=== PATIENT | female | born 1965 | race Caucasian/White ===

== ENCOUNTER → 2018-01-21 | Day surgery (SDC) | payer OTHER ==
[2018-01-20 13:06] LABS: BASOPHILS # (AUTO) 0.1 (0.0-0.1); BASOPHILS % 0.5 % (0.0-1.0); EOSINOPHILS # (AUTO) 0.1 (0.0-0.4); HEMATOCRIT 45.4 % (34.2-44.1); HEMOGLOBIN 15.4 g/dL (12.0-16.0); LYMPHOCYTES # (AUTO) 1.4 (1.0-3.2); LYMPHOCYTES % 14.1 % (18.0-39.1); MEAN CORPUSCULAR HEMOGLOBIN 32.4 pg (28-32); MEAN CORPUSCULAR HGB CONC 33.9 g/dL (31-35); MEAN CORPUSCULAR VOLUME 95.6 fL (81-99); MONOCYTES # (AUTO) 0.6 (0.2-0.8); MONOCYTES % 5.7 % (4.4-11.3); NEUTROPHILS % 78.4 % (38.7-80.0); PLATELET COUNT 208 x10e3/uL (140-360); RED BLOOD COUNT 4.75 x10e6/uL (3.6-5.1); RED CELL DISTRIBUTION WIDTH 12.6 % (11.7-14.4)
--- NOTE | 2018-01-20 13:50 | Diagnostic Imaging Report ---
PROCEDURE: Frontal and lateral views of the chest. COMPARISON: None INDICATIONS: PRE-OP. History of fibroids. FINDINGS: Lines/tubes: None. Lungs: The lungs are well inflated and clear. There is no evidence of pneumonia or pulmonary edema. Pleura: There is no pleural effusion or pneumothorax. Heart and mediastinum: The heart and the mediastinum are normal. Calcified hilar and mediastinal lymph nodes. Atherosclerotic calcifications in the aortic arch. Bones: No acute bony abnormality. IMPRESSION: No acute cardiopulmonary disease. Dictated by: Gera Felix M.D. on 01/20/2018 at 13:52 Electronically approved by: Gera Felix M.D. on 01/20/2018 at 13:52
[~2018-01-21] MED LIST: ACETAMINOPHEN 1000 MG/100 ML 100 ML IV ONE; ACETAMINOPHEN 1000 MG/100 ML IV ONE; AMLODIPINE BESY10 MG PO; CLONAZEPAM1 MG PO; DEXAMETHASONE SOD PHOS INJ 4 MG/ML VIAL ONE; FENTANYL CITRATE/PF 100MCG/2 ML INJ ONE; LIDOCAINE HCL 2% LOCAL INJ 5 ML SDV VIAL INJ ONE; MIDAZOLAM HCL 2 MG/2 ML VIAL ONE; MORPHINE SULFATE 2 MG/ML SYR ONE; OMEPRAZOLE20 MG PO; PROPOFOL IV EMULSION 10 MG/ML 20 ML VIAL ONE; SEVOFLURANE INHAL SOLN 250 ML PEN BTL ONE; SILVER NITRATE SWABS ONE; SODIUM CHLORIDE 0.9% IV ONE; VASOPRESSIN IV ONE; ZOLOFT50 MG PO
--- OUTSIDE RECORDS SUMMARY | 2018-01-21 11:54 | XMS REPORT | Clinical Summary ---
Author Author [place] [facility] Address Unknown Phone Unavailable Care Team Providers Care Novelty Chain Maker Name Role Phone Geraldo Marte MD PCP Allergies Active Allergy Reactions Severity Noted Date Comments Erythromycin 03/03/2017 Rash Current Medications Prescription Sig. Disp. Refills Start End Date Status Date amLODIPine (NORVASC) 10 Take 1 tablet by mouth 0 02/24/20 Active mg tablet daily. 17 LORAZepam (ATIVAN) 0.5 MG TK 1 T PO Q 8 H PRN 0 04/10/20 Active tablet ANXIETY 17 Active Problems Problem Noted Date Hypertension 03/03/2017 Encounters Date Type Specialty Care Team Description 06/08/2017 Telephone Neurology Kinga Moya MA 06/08/2017 Telephone Neurology Kinga Moya MA 05/31/2017 Orders Only Neurology Kinga Myoa MA Intractable migraine without aura and without status migrainosus 05/31/2017 Telephone Neurology Kinga Moya MA 05/06/2017 Orders Only Neurology Kinga Moya MA Intractable migraine without aura and without status migrainosus 04/20/2017 Telephone Neurology Kinga Moya MA 04/16/2017 Office Visit Neurology Kami Dillard MD Intractable migraine without aura and without status migrainosus (Primary Dx); Anxiety 04/14/2017 Telephone Neurology Kami Dillard MD 03/03/2017 [facility] Lea Cisneros MD Physical after 01/20/2017 Immunizations Name Dates Previously Given Next Due FLULAVAL QUAD LATEX FREE 07/28/2016 Hepatitis A 03/03/2017 Hepatitis B 03/03/2017 PPD Test 07/28/2016 Typhoid Inactivated 03/03/2017 Family History Medical History Relation Name Comments COPD Father Coronary artery disease Paternal Grandmother Relation Name Status Comments Father Alive Paternal Grandmother Social History Tobacco Use Types Packs/Day Years Used Date Current Every Day Smoker Comments: smokes 1 1/2 pack a day Alcohol Use Drinks/Week oz/Week Comments Yes heavy drinker Sex Assigned at Date Recorded Not on file Last Filed Vital Signs Vital Sign Reading Time Taken Blood Pressure 132/77 04/16/2017 11:59 AM CDT Pulse 63 04/16/2017 11:59 AM CDT Temperature - - Respiratory Rate 18 03/03/2017 10:49 AM CDT Oxygen Saturation - - Inhaled Oxygen - - Concentration Weight 77.9 kg (171 lb 12.8 oz) 04/16/2017 11:59 AM CDT Height 167.6 cm (5' 6") 04/16/2017 11:59 AM CDT Body Mass Index 27.73 04/16/2017 11:59 AM CDT Plan of Treatment Health Maintenance Due Date Last Done Comments PAP SMEAR 01/10/1988 COLONOSCOPY 2017 MAMMOGRAM 2017 SHINGRIX VACCINE (#1) 2017 INFLUENZA VACCINE 04/13/2018 07/28/2016 Results Not on fileafter 01/20/2017 Insurance Payer Benefit Subscriber ID Type Phone Address Plan / Group [employer] CIGNA OPEN xxxxxxxxxxx HMO ACCESS/[place] [address]
--- OUTSIDE RECORDS SUMMARY | 2018-01-21 11:54 | XMS REPORT ---
Author Author [facility] Address Unknown Phone Unavailable Care Team Providers Care Castables Worker Name Role Phone VIKTORIA SANCHEZ Unavailable Unavailable Problems This patient has no known problems. Allergies, Adverse Reactions, Alerts This patient has no known allergies or adverse reactions. Medications This patient has no known medications. Results Test Description Test Time Test Comments Text Results Atomic Results Result Comments CHEST 2 VIEWS [place] [address] Patient Name: RHIANNA GARCIA MR #: [id number] : 1965 Age/Sex: 53/F Req # : [id number] Adm Physician: Ordered by: VIKTORIA SANCHEZ MD Report #: [id number] Location: OR Room/Bed: Procedure: [id number] DX/CHEST 2 VIEWS Exam Date: Exam Time: REPORT STATUS: Signed PROCEDURE: Frontal and lateral views of the chest. COMPARISON: None INDICATIONS: PRE-OP. History of fibroids. FINDINGS: Lines/tubes: None. Lungs: The lungs are well inflated and clear. There is no evidence of pneumonia or pulmonary edema. Pleura : There is no pleural effusion or pneumothorax. Heart and mediastinum: The heart and the mediastinum are normal. Calcified hilar and mediastinal lymph nodes. Atherosclerotic calcifications in the aortic arch. Bones: No acute bony abnormality. IMPRESSION: No acute cardiopulmonary disease. Dictated by: Adela Felix M.D. on 01/20/2018 at 13:52 Electronically approved by: Adela Felix M.D. on 01/20/2018 at 13:52 Dictated By: ADELA FELIX MD 135 Transcribed By: CODY on 01/20/181351 COPY TO: VIKTORIA SANCHEZ MD
--- NOTE | 2018-01-24 08:28 | Operative Report ---
DATE OF PROCEDURE: January 21, 2018 PREOPERATIVE DIAGNOSES 1. Fibroid uterus. 2. Abnormal uterine bleeding. POSTOPERATIVE DIAGNOSES 1. Fibroid uterus. 2. Abnormal uterine bleeding. 3. Intracavitary fibroid. TITLES OF PROCEDURE 1. Hysteroscopic myomectomy via Symphion procedure. 2. Hysteroscopic endometrial ablation via HDA procedure. ANESTHESIA: General with Dr. Osorio. INDICATIONS FOR THE OPERATION: The patient is a 53-year-old, 3, para 2-0-1-2, with last menstrual period January 06, 2018, with abnormal uterine bleeding, found to have a fibroid uterus, a 1.7-cm submucosal myoma. Endometrial biopsy showed benign proliferative endometrium. She tends to bleed 3-4 weeks at a time and she was offered medication, hysteroscopic myomectomy, and HDA ablation, and hysterectomy. She has chosen the hysteroscopic myomectomy and HDA ablation. She was, therefore, taken to the operating room at this time. FINDINGS AT SURGERY: There was a 2-cm pedunculated intracavitary myoma, which was excised by Symphion procedure. After excising the fibroid, both ostia were seen and the cavity was more normal appearing. Then, HDA ablation was performed without difficulty. Total fluid deficit combined for all procedures was 450 mL. PROCEDURE: The patient was taken to operating room, placed on the table in the supine position. General anesthesia was administered. The patient was placed in the lithotomy position. The perineum was prepped and draped in the usual sterile manner. The bladder was drained by in and out catheterization. Pelvic exam revealed an 8-week size, nodular, anteverted uterus with no adnexal masses. A weighted speculum was placed in the posterior vaginal wall. Then with the aid of a right-angled retractor, the anterior lip of the cervix was grasped with single-toothed tenaculum. Then, with Mac dilators, endocervical canal was dilated up to #18. Then, the hysteroscope was placed with the finding of intracavitary fibroid. Therefore, the Symphion hysteroscope was placed. Everything was connected. The fibroid appeared to be connected by a stalk posteriorly. It was not a very thick connection. Dilute Pitressin was injected into the cervix at 2, 4, 8, and 10 o'clock for improved hemostasis and then, we proceeded with the Symphion procedure. The Symphion device was applied to the stalk of the fibroid and was able to free it up from the uterine wall and then, the fibroid was cut into pieces using the Symphion procedure and the device suctioned the fibroid pieces into a bag for collection to be sent to pathology for definitive diagnosis. Entire fibroid had become freed, but it was quickly cut up and suctioned into the collection device and then, the rest of the cavity was visualized. Any remaining portion of the stalk was removed using the Symphion device. We made sure to sample a small amount of endometrium and then, both ostia were visualized and the cavity was apparently completely visualized at this point with no further fibroids noted and then, the decision was made to proceed with the HDA procedure. The HDA scope was placed and after confirming that the endometrial cavity was sealed completely, we proceeded with the HDA ablation. A warm water was heated up 80-90 degrees Celsius. Then, for 10 minutes, the warm water was applied. It apparent the cavity was blanching after the endometrial ablation with the HDA device. After the 10 minutes have passed, we inspected cavity, found a good ablation that we performed. No bleeding was noted and the procedure was deemed terminated. All the fluid and instruments were removed from the uterus and the vagina. There was no bleeding at the tenaculum site. There were no complications noted. Estimated blood loss was 5 mL. The patient tolerated the procedure well, was transferred from the operating room to the recovery room in stable condition. Job#: [id number] CQ
== END | disposition home or self-care (01) ==
LOC: OR 11:52
PROVIDERS: ATTEND Obstetrics & Gynecology
DX: D25.0 Submucous leiomyoma of uterus (principal); N92.0 Excessive and frequent menstruation with regular cycle; Z01.810 Encounter for preprocedural cardiovascular examination; Z01.812 Encounter for preprocedural laboratory examination; Z01.818 Encounter for other preprocedural examination; K21.9 Gastro-esophageal reflux disease without esophagitis; I10 Essential (primary) hypertension; F41.8 Other specified anxiety disorders; F17.210 Nicotine dependence, cigarettes, uncomplicated; Z88.1 Allergy status to other antibiotic agents
CPT/HCPCS: 36415; 58561; 58563; 71046; 84702; 85025; 86850; 86900; 88305; 93005; J1100; J2001; J2250; J2270

== ENCOUNTER → 2021-03-24 | Day surgery (SDC) | payer MEDICARE, OTHER ==
[2021-03-19 13:51] LABS: BASOPHILS % 0.5 % (0.0-1.0); EOSINOPHILS # (AUTO) 0.4 (0.0-0.4); EOSINOPHILS % 4.7 % (0.0-6.0); HEMATOCRIT 45.5 % (34.2-44.1); HEMOGLOBIN 14.9 g/dL (12.0-16.0); LYMPHOCYTES # (AUTO) 1.9 (1.0-3.2); LYMPHOCYTES % 23.7 % (18.0-39.1); MEAN CORPUSCULAR HEMOGLOBIN 30.6 pg (28-32); MEAN CORPUSCULAR HGB CONC 32.7 g/dL (31-35); MEAN CORPUSCULAR VOLUME 93.4 fL (81-99); MONOCYTES # (AUTO) 0.5 (0.2-0.8); MONOCYTES % 6.3 % (4.4-11.3); NEUTROPHILS % 64.5 % (38.7-80.0); PLATELET COUNT 253 x10e3/uL (140-360); RED BLOOD COUNT 4.87 x10e6/uL (3.6-5.1); RED CELL DISTRIBUTION WIDTH 13.9 % (11.7-14.4)
[~2021-03-24] MED LIST changes: -ACETAMINOPHEN 1000 MG/100 ML 100 ML IV ONE; -ACETAMINOPHEN 1000 MG/100 ML IV ONE; +ALBUTEROL0.63 MG/3 NEB; +ANORO ELLIPTA1 EACH INH; -DEXAMETHASONE SOD PHOS INJ 4 MG/ML VIAL ONE; +LAMICTAL100 MG PO; +METOCLOPRAMIDE HCL 10 MG/2ML VIAL ONE; -MORPHINE SULFATE 2 MG/ML SYR ONE; +PANTOPRAZOLE SO40 MG PO; +POVIDONE IODINE 0.05% 0.05 % ML PO ONE; -PROPOFOL IV EMULSION 10 MG/ML 20 ML VIAL ONE; -SEVOFLURANE INHAL SOLN 250 ML PEN BTL ONE; -SILVER NITRATE SWABS ONE; -SODIUM CHLORIDE 0.9% IV ONE; -VASOPRESSIN IV ONE
[2021-03-24 16:45] VITALS: BP 109/68
== END | disposition home or self-care (01) ==
LOC: OR 10:25
PROVIDERS: ATTEND Internal Medicine Gastroenterology
DX: Z12.11 Encounter for screening for malignant neoplasm of colon (principal); D12.0 Benign neoplasm of cecum; K62.1 Rectal polyp; K29.50 Unspecified chronic gastritis without bleeding; K29.80 Duodenitis without bleeding; K21.00 Gastro-esophageal reflux disease with esophagitis, without bleeding; K44.9 Diaphragmatic hernia without obstruction or gangrene; K64.8 Other hemorrhoids; R00.1 Bradycardia, unspecified; J44.9 Chronic obstructive pulmonary disease, unspecified; I10 Essential (primary) hypertension; F32.9 Major depressive disorder, single episode, unspecified; Z88.1 Allergy status to other antibiotic agents; Z01.810 Encounter for preprocedural cardiovascular examination; Z01.812 Encounter for preprocedural laboratory examination; Z99.81 Dependence on supplemental oxygen; Z68.30 Body mass index [BMI] 30.0-30.9, adult
CPT/HCPCS: 36415; 43239; 45380; 45385; 85025; 88305; 88312; 93005; C9113; J2001; J2250; J2765; J3010

== ENCOUNTER 2021-05-06 21:03 | Emergency (ER) | payer MEDICARE, OTHER ==
[~2021-05-06] VITALS: Ht 167.6 cm; Wt 81.6 kg
[~2021-05-06 21:03] MED LIST changes: -FENTANYL CITRATE/PF 100MCG/2 ML INJ ONE; -LIDOCAINE HCL 2% LOCAL INJ 5 ML SDV VIAL INJ ONE; -METOCLOPRAMIDE HCL 10 MG/2ML VIAL ONE; -MIDAZOLAM HCL 2 MG/2 ML VIAL ONE; -POVIDONE IODINE 0.05% 0.05 % ML PO ONE
[2021-05-06] MEDS ORDERED: METHYLPREDNISOLONE SOD SUCC 125 MG/2ML VIAL IV STA (21:07)
[2021-05-06] MEDS ORDERED: ALBUTEROL/IPRATROPIUM 3 ML NEB NEB STA ×2 (21:09→21:14)
[2021-05-06] MEDS ORDERED: ASPIRIN 81 MG CHEW TAB PO ONE (21:15)
[2021-05-06 21:48] LABS: BASOPHILS # (AUTO) 0.1 (0.0-0.1); BASOPHILS % 0.5 % (0.0-1.0); EOSINOPHILS # (AUTO) 0.5 (0.0-0.4); EOSINOPHILS % 4.5 % (0.0-6.0); HEMATOCRIT 43.3 % (34.2-44.1); HEMOGLOBIN 14.2 g/dL (12.0-16.0); LYMPHOCYTES # (AUTO) 2.2 (1.0-3.2); LYMPHOCYTES % 19.2 % (18.0-39.1); MEAN CORPUSCULAR HGB CONC 32.8 g/dL (31-35); MEAN CORPUSCULAR VOLUME 91.4 fL (81-99); MONOCYTES # (AUTO) 0.7 (0.2-0.8); MONOCYTES % 5.8 % (4.4-11.3); NEUTROPHILS # (AUTO) 7.8 (2.1-6.9); NEUTROPHILS % 69.6 % (38.7-80.0); PLATELET COUNT 224 x10e3/uL (140-360); RED BLOOD COUNT 4.74 x10e6/uL (3.6-5.1)
[2021-05-06 21:51] LABS: ALBUMIN 4.4 g/dL (3.5-5.0); ALBUMIN/GLOBULIN RATIO 1.8 (0.8-2.0); ANION GAP 15.7 mmol/L (8-16); CALCIUM 9.1 mg/dL (8.4-10.2); CREATININE, SERUM 0.96 mg/dL (0.57-1.11); POTASSIUM 3.7 mmol/L (3.5-5.1)
[2021-05-06 22:00] LABS: CREATINE KINASE MB 2.7 ng/mL (0-5.0)
[2021-05-06] MEDS ORDERED: AUGMENTIN 875-1 EACH PO (22:44)
[2021-05-06] MEDS ORDERED: PREDNISONE20 MG PO (22:44)
[2021-05-07 02:05] VITALS: BP 132/65
== END 2021-05-06 23:00 | disposition home or self-care (01) ==
LOC: ER 21:08
DX: R06.00 Dyspnea, unspecified (principal); J44.9 Chronic obstructive pulmonary disease, unspecified; Z20.822 Contact with and (suspected) exposure to COVID-19; F17.210 Nicotine dependence, cigarettes, uncomplicated
CPT/HCPCS: 36415; 71045; 80053; 82550; 82553; 83880; 84484; 85025; 93005; 99284; J2930; U0002